=== PATIENT | female | born 1965 | race Two or more races ===

== ENCOUNTER 2024-06-04 20:38 | Emergency (ER) | payer MEDICAID, SELFPAY ==
[2024-06-04 20:40] VITALS: BMI 35.9
[2024-06-04 21:19] VITALS: BP 148/90; PULSE 77; RESP 19; TEMP 36.7; O2SAT 98
--- NOTE | 2024-06-04 21:38 | XR_ITS ---
Examination: PA chest single view TECHNIQUE: Upright PA chest single view Exam date and time: June 04, 2024 2151 hours INDICATION: Chest pain shortness of breath today. FINDINGS: No significant cardiac enlargement Minimal opacity right base obscuring detail of the right hemidiaphragm Intact osseous structures Impression : Suspicious for minimal right base pneumonia
[2024-06-04 22:28] LABS: Alanine Aminotransferase 25 U/L (10-49); Albumin, Serum 4.5 gm/dL (3.5-5.0); Albumin/Globulin Ratio 1.6 (1.2-2.2); Alkaline Phosphatase 84 U/L (46-116); Anion Gap 11 (7-16); Aspartate Amino Transferase 34 U/L (0-34); BUN/Creatinine Ratio 17 Ratio (12-20); Bilirubin,Total 0.6 mg/dL (0.3-1.2); Blood Urea Nitrogen 17 mg/dL (9-23); Calcium 10.2 mg/dL (8.3-10.6); Calcium (Corrected) 10.2 mg/dL (8.5-10.1); Carbon Dioxide 29.4 mMol/L (20.0-31.0); Chloride 102 mMol/L (98-107); Estimated Creatinine Clearance 60.4 mL/min (>60); Globulin 2.8 gm/dL (2.3-3.5); Glucose 117 mg/dL (74-106); Magnesium 2.2 mg/dL (1.6-2.6); Osmolality,Calculated 285 (275-295); Potassium 3.1 mMol/L (3.4-5.1); Sodium 142 mMol/L (136-145); Total Protein 7.3 gm/dL (5.7-8.2); Troponin I < 0.020 ng/mL (0.0-0.045); eGFR > 60 See Note
[2024-06-04 22:34] LABS: Basophils # (Auto) 0.1 Thou/mm3 (0.0-0.2); Basophils % (Auto) 1 % (0-2.5); Eosinophils # (Auto) 0.1 Thou/mm3 (0.0-0.5); Eosinophils % (Auto) 2 % (0-10); Hematocrit 41.1 % (36.0-46.0); Immature Granulocytes % (Auto) 0 % (0-0); Immature Granulocytes Auto 0.02 Thou/mm3 (0.00-0.00); Lymphocytes % (Auto) 33 % (10-50); Mean Corpuscular HGB Conc 36.5 g/dl (31.0-37.0); Mean Corpuscular Hemoglobin 32.5 pg (25.0-35.0); Mean Corpuscular Volume 89 fL (80-100); Monocytes # (Auto) 0.5 Thou/mm3 (0.0-0.8); Monocytes % (Auto) 6 % (0-12); Neutrophils # (Auto) 5.2 Thou/mm3 (1.8-7.7); Neutrophils % (Auto) 58 % (37-80); Nucleated Red Blood Cell % 0 /100 WBC (0); Platelet Count 274 Thou/mm3 (140-440); RDW Standard Deviation 42.5 fL (36.4-46.3); Red Blood Count 4.61 Miln/mm3 (4.00-5.20)
[2024-06-04] MEDS: POTASSIUM CHLORIDE 20 mEq TABCR 40 MEQ PO (23:01)
[2024-06-04 23:55] VITALS: BP 174/97; PULSE 78; RESP 18; TEMP 36.6; O2SAT 99
[2024-06-05 01:33] LABS: Troponin I < 0.020 ng/mL (0.0-0.045)
[2024-06-05 01:43] VITALS: BP 156/88; PULSE 69; RESP 18; TEMP 36.6; O2SAT 98
[2024-06-05] MEDS: AZITHROMYCIN 250 MG TABLET 500 MG PO (02:06)
--- NOTE | 2024-06-05 05:09 | PD.EDCHEST ---
ED Chest Pain RME/HPI General Chief Complaint: Chest Pain Stated Complaint: LEFT SIDED CHEST PAIN RADIATING TO ARM, DIZZINESS Time Seen by Provider: 06/04/24 21:38 Arrival date/time: 06/04/24 20:38 58F with history of HTN and anxiety presents to ED with 1 week of cough and 1 day of L-sided CP that radiates down arm. Limitations: no limitations Related Data Home Medications ?Medication ?Instructions ?Recorded ?Confirmed atenolol 25 mg tablet (Tenormin) 25 mg PO QPM ##0 07/03/12 12/22/17 ranitidine HCl 150 mg tablet 150 mg PO BID #0 tabs 03/14/13 12/22/17 (Zantac) benazepril 40 mg tablet (Lotensin) 40 mg PO QDAY #0 tabs 12/06/13 12/22/17 lorazepam 1 mg tablet 1 mg PO BID #0 tabs 12/06/13 12/22/17 Previous Rx's ?Medication ?Instructions ?Recorded pantoprazole 40 mg tablet,delayed 40 mg PO QDAY #14 tabs 07/14/20 release (Protonix) azithromycin 250 mg tablet See Rx Instructions PO .COMPLEX #6 06/05/24 tabs Allergies Allergy/AdvReac Type Severity Reaction Status Date / Time No Known Allergies Allergy Verified 06/04/24 20:40 Review of Systems Review of Systems Systems Reviewed: All systems reviewed, normal except as documented Constitutional Constitutional: Reports system reviewed and no additional complaints, except as documented, Denies fever(s) and Denies headache(s) ENT Ears, Nose, Mouth, and Throat: Denies disequilibrium and Denies headache(s) Cardiovascular Cardiovascular: Reports system reviewed and no additional complaints, except as documented, Reports as per HPI, Reports chest pain and Denies dyspnea Respiratory Respiratory: Reports system reviewed and no additional complaints, except as documented, Reports as per HPI, Reports cough and Denies dyspnea Gastrointestinal Gastrointestinal: Reports system reviewed and no additional complaints, except as documented, Denies abdominal pain, Denies nausea and Denies vomiting Neurologic Neurologic: Reports system reviewed and no additional complaints, except as documented, Denies confusion, Denies disequilibrium and Denies headache(s) Psychiatric Psychiatric: Denies confusion Past Medical History Past Medical History CARDIAC: Positive Cardiac Disorders and Hypertension; Negative Congestive Heart Failure RESPIRATORY: Negative Chronic Obstructive Pulmonary Disease (COPD) GASTROINTESTINAL: Positive Gastrointestinal Disorders and Gastroesophageal Reflux Disease GENITOURINARY: Negative Renal Disease ENDOCRINE: Negative Diabetes Mellitus Type 1 or Diabetes Mellitus Type 2 PSYCHO/SOCIAL: Positive Anxiety Surgical History SURGICAL: Positive Hysterectomy and Section Social History SMOKING STATUS: Never smoker ED Exam General Limitations: Present no limitations General appearance: Present alert, in no apparent distress and anxious Head Head exam: Present atraumatic Eye Eye exam: Present normal appearance, PERRL and EOMI ENT ENT exam: Present normal exam, normal oropharynx and mucous membranes moist Neck Neck exam: Present normal inspection, full ROM and trachea midline Chest Chest inspection: Present normal inspection and symmetric chest wall rise Respiratory Respiratory exam: Present normal lung sounds bilaterally Cardiovascular Cardiovascular exam: Present regular rate, normal rhythm and normal heart sounds Abdominal Exam Abdominal exam: Present soft and normal bowel sounds Extremities Exam Extremities exam: Present normal inspection and full ROM Back Exam Back exam: Present normal inspection and full ROM Neurological Exam Neurological exam: Present alert, oriented X3 and CN II-XII intact Psychiatric Psychiatric exam: Present normal affect and normal mood Skin Skin exam: Present warm, dry, intact and normal color Course Quality Measures none Orders Category Date Time Status Bedside COVID-19 Antigen Test NOW Care 06/04/24 21:38 Completed Bedside Influenza A&B Antigen Test NOW Care 06/04/24 21:39 Completed EKG (ED ONLY) *Do not use* NOW Care 06/04/24 20:44 Completed EKG (ED Only) Stat Exams 06/04/24 20:44 Ordered XR chest 1V portable Stat Exams 06/04/24 21:38 Completed CBC Stat Lab 06/04/24 22:04 Completed Comprehensive Metabolic Panel Stat Lab 06/04/24 22:04 Completed Magnesium Stat Lab 06/04/24 22:04 Completed Troponin I Stat Lab 06/04/24 22:04 Completed Troponin I Stat Lab 06/05/24 00:47 Completed Azithromycin Po [Zithromax PO] Med 06/05/24 01:50 Discontinued 500 mg PO X1 ONE Potassium Chloride [K-Dur] Med 06/04/24 22:38 Discontinued 40 meq PO X1 ONE Vital Signs Vital signs: Vital Signs Temperature 98.1 F 06/04/24 21:19 Pulse Rate 77 06/04/24 21:19 Respiratory Rate 19 06/04/24 21:19 Blood Pressure 148/90 H 06/04/24 21:19 Pulse Oximetry (%) 98 06/04/24 21:19 O2 at 98% on RA and WNLs Chest Pain MDM Narrative MDM Narrative:: 58F with history of HTN and anxiety presents to ED with 1 week of cough and 1 day of L-sided CP that radiates down arm. Physical exam reveals clear ENT and lungs. Normal WOB. Patient is afebrile, alert, but very anxious. Patient declines Valium as she has Ativan. EKG is sinus tach of 113. Trop (2x normal). CXR shows mild PNA. Swabs neg. L mildly low, but this appear to be a chronic problem for her. Mag normal. Meds and rehab/pre vocational counselor given. Patient data External records reviewed:: [facility] previous records Clinical information provided by:: patient Social determinants that could affect healthcare access:: mental health Patient has the following chronic illnesses:: HTN and anxiety How is presenting disease/condition affected by chronic disease/condition?: exacerbated by Evaluation data The following diagnostics were reviewed and interpreted by me:: lab results, radiology exam(s) and EKG tracing(s) Lab and/or radiology exams considered but not ordered:: ordered Interpretation Summary: above Medications / Prescriptions Medications or Prescriptions considered but not ordered:: ordered Medication administrations:: Medication Administration History Discontinued Medications Azithromycin (Azithromycin 250 Mg Tablet) 500 mg PO X1 ONE Stop: 06/05/24 01:51 Last Admin: 06/05/24 02:06 Dose: 500 mg Documented By: SHAHID Potassium Chloride (Potassium Chloride 20 Meq Tabcr) 40 meq PO X1 ONE Stop: 06/04/24 22:39 Last Admin: 06/04/24 23:01 Dose: 40 meq Documented By: BD above Consultations Consultation(s) initiated? (list below): No Diagnosis Chest Pain Differential Diagnosis: fracture of rib, pneumothorax, stable angina, unstable angina pectoris, atypical chest pain, st elevation myocardial infarction, costochondritis, chest pain, biliary colic and other (CAP) Most likely diagnosis given after review of the tests above:: CAP Admission Indicated Admission indicated?: not indicated Admission Request Was there a request for admission?: No Disposition Plan Disposition Plan: Discharge Discharge Attestation Discharge Attestation: The patient and all family members were given an opportunity to ask questions and understood the discharge instructions. Discharge instructions specifically effects, indications for sooner follow up or return to the emergency department, and the expected course of current diagnosis. Patient condition: Stable Discharge Plan Plan Patient Disposition: HOME (Self Care) Disposition Comment: Stable Prescriptions/Referrals Prescriptions/Med Rec: New azithromycin 250 mg tablet See Rx Instructions .ROUTE .COMPLEX Qty: 6 0RF Rx Instructions: For 250 mg dose pack: take 500 mg today (day 1), then 250 mg for 4 days (days 2-5) No Action atenolol [Tenormin] 25 MG tablet 25 mg PO QPM Qty: 0 ranitidine HCl [Zantac] 150 MG tablet 150 mg PO BID Qty: 0 lorazepam 1 MG tablet 1 mg PO BID Qty: 0 benazepril [Lotensin] 40 MG tablet 40 mg PO QDAY Qty: 0 pantoprazole [Protonix] 40 mg tablet,delayed release (DR/EC) 40 mg PO QDAY Qty: 14 0RF Referrals: Baljit Sheth FNP [Primary Care Provider] - In 1 week Problem List Clinical Impression: CAP (community acquired pneumonia) Patient/Caregiver Discharge Instructions Education Materials: ED Pneumonia (Adult) Additional Instructions: Please follow-up with PCP within 24-48 hours and return immediately if symptoms worsen. Print Language: Uzbek Stand Alone Forms: Patient Portal Info Letter MILY/YO Supervising Physician MILY/YO Supervising Physician: Dr. Melendez
== END 2024-06-05 02:09 | disposition home or self-care (01) ==
PROVIDERS: Physician Assistant; Emergency Provider Emergency Medicine; PCP Nurse Practitioner Family
DX: J18.9 Pneumonia, unspecified organism (principal); I10 Essential (primary) hypertension
CPT/HCPCS: 36415; 71045; 80053; 83735; 84484; 85025; 87400; 87811; 93005; 99283; A9270